=== PATIENT | male | born 1945 | race Asian ===

== ENCOUNTER 2020-04-28 02:53 | Inpatient (IN) | payer MEDICARE, OTHER ==
[2020-04-28] VITALS (8 sets, daily range): BP systolic 128–154; BP diastolic 45–86
[~2020-04-28] VITALS: Ht 170.2 cm; Wt 62.3 kg
[~2020-04-28 02:53] MED LIST: ASPI-1111 PO; CANA300T PO; LISI-892 PO; METF-960 PO; MULT-1259 PO; PIOG45TA4 PO
[2020-04-28] MEDS ORDERED: LevETIRAcetam 500 MG in DEXTROSE 5%-WATER 100 ML IV ONE (03:30)
[2020-04-28 03:40] LABS: BASOPHILS % (AUTO) 0.5 % (0.0-2.0); EOSINOPHILS % (AUTO) 3.4 % (1.0-6.0); HEMOGLOBIN 12.2 g/dL (13.5-17.5); LYMPHOCYTES # (AUTO) 1.7 K/uL (1.0-4.8); LYMPHOCYTES % (AUTO) 21.1 % (22.0-44.0); MEAN CORPUSCULAR HEMOGLOBIN 26.4 pg (26.0-34.0); MEAN CORPUSCULAR HGB CONC 32.1 G/dL (31.0-37.0); MEAN CORPUSCULAR VOLUME 83 fL (80-100); MONOCYTES # (AUTO) 0.5 K/uL (0.1-1.0); MONOCYTES % (AUTO) 6.4 % (2.0-9.0); NEUTROPHILS # (AUTO) 5.5 K/uL (1.8-7.7); NEUTROPHILS % (AUTO) 68.6 % (40.0-70.0); PLATELET COUNT (AUTO) 199 K/uL (150-450); RED BLOOD CELL COUNT(AUTO) 4.61 MIL/uL (4.50-5.90); RED CELL DISTRIBUTION WIDTH 13.7 % (11.5-14.5)
[2020-04-28 03:55] LABS: ANION GAP 9 mmol/L (8-16); CALCIUM, TOTAL 9.6 mg/dL (8.8-10.5); CARBON DIOXIDE 28 mmol/L (22-29); CHLORIDE 106 mmol/L (98-107); CREATININE 0.94 mg/dL (0.60-1.30); GLOMERULAR FILTR. RATE CALC > 60 mL/min (>60); GLUCOSE,RANDOM 123 mg/dL (70-110); POTASSIUM 3.6 mmol/L (3.5-5.1); SODIUM SERUM 143 mmol/L (136-145); UREA NITROGEN, BLOOD 19 mg/dL (7-18)
[2020-04-28 03:57] LABS: INR 0.9 (0.9-1.1); PROTHROMBIN TIME 9.9 SEC (9.4-11.6)
[2020-04-28] MEDS: NiCARDipine HCL 25 MG in DEXTROSE 5%-WATER 240 ML IV PRN (03:57)
[2020-04-28 04:02] LABS: ALANINE AMINOTRANSFERASE 33 U/L (12-78); ALBUMIN 3.8 g/dL (3.4-5.0); ALKALINE PHOSPHATASE 81 U/L (46-116); ASPARTATE AMINOTRANSFERASE 24 U/L (15-37); BILIRUBIN,TOTAL 0.5 mg/dL (0.1-1.0); TOTAL PROTEIN, SERUM 7.6 g/dL (6.4-8.2)
[2020-04-28 04:11] LABS: COVID AG,FIA SOURCE NASOPHARYNGEAL
[2020-04-28] MEDS ORDERED: DEXTROSE 50%-WATER 25 GM/50 ML SYRINGE IVP PRN (09:30)
[2020-04-28 13:05] LABS: APPEARANCE,URINE CLEAR (CLEAR); BILIRUBIN,URINE NEGATIVE (NEGATIVE); GLUCOSE, URINE (UA) NEGATIVE (NEGATIVE); KETONES,URINE NEGATIVE (NEGATIVE); LEUKOCYTE ESTERASE ,URINE NEGATIVE (NEGATIVE); NITRATE,URINE NEGATIVE (NEGATIVE); OCCULT BLOOD,URINE NEGATIVE (NEGATIVE); PH,URINE 7.5 (5.0-8.0); PROTEIN,URINE NEGATIVE (NEGATIVE); UROBILINOGEN,URINE 0.2 mg/dL (<=1.0)
[2020-04-28 13:11] LABS: AMPHET/METH SCREEN,URINE NEGATIVE (NEGATIVE); BARBITURATE SCREEN, URINE NEGATIVE (NEGATIVE); BENZODIAZEPINES SCREEN,URINE NEGATIVE (NEGATIVE); CANNABINOID SCREEN,URINE NEGATIVE (NEGATIVE); COCAINE SCREEN,URINE NEGATIVE (NEGATIVE); METHADONE SCREEN, URINE NEGATIVE (NEGATIVE); OPIATE SCREEN,URINE NEGATIVE (NEGATIVE); PHENCYCLIDINE SCREEN,URINE NEGATIVE (NEGATIVE)
[2020-04-28 13:14] LABS: BACTERIA,URINE None Seen /HPF (None Seen); RBC,URINE None Seen /HPF (0-2); WBC,URINE None Seen /HPF (0-5)
[2020-04-28] MEDS ORDERED: ACETAMINOPHEN 325 MG TABLET PO PRN (13:30)
[2020-04-28] MEDS ORDERED: BISACODYL 10 MG RECTAL RECTAL SUPPOSITORY PR PRN (13:30)
[2020-04-28] MEDS ORDERED: DEXTROSE 5%-0.45% SODIUM CHL 1,000 ML IV ONE (13:45)
[2020-04-28 15:33] LABS: GLUCOSE,POINT OF CARE 143 MG/DL (70-110)
[2020-04-28] MEDS: INSULIN LISPRO 100 UNITS/ML SQ PRN (15:33)
[2020-04-28] MEDS: LevETIRAcetam 500 MG in DEXTROSE 5%-WATER 100 ML IV SCH (16:14)
[2020-04-28 17:54] LABS: GLUCOSE,POINT OF CARE 114 MG/DL (70-110)
[2020-04-28 23:46] LABS: GLUCOSE,POINT OF CARE 134 MG/DL (70-110)
[2020-04-29] VITALS (13 sets, daily range): BP systolic 114–145; BP diastolic 70–88
[2020-04-29] MEDS: LevETIRAcetam 500 MG in DEXTROSE 5%-WATER 100 ML IV SCH ×2 (03:21→15:48)
[2020-04-29 05:05] LABS: GLUCOSE,POINT OF CARE 158 MG/DL (70-110)
[2020-04-29 05:08] LABS: BASOPHILS % (AUTO) 0.4 % (0.0-2.0); EOSINOPHILS % (AUTO) 3.1 % (1.0-6.0); HEMATOCRIT 41.8 % (41-53); HEMOGLOBIN 13.4 g/dL (13.5-17.5); LYMPHOCYTES # (AUTO) 1.5 K/uL (1.0-4.8); LYMPHOCYTES % (AUTO) 24.2 % (22.0-44.0); MEAN CORPUSCULAR HEMOGLOBIN 26.5 pg (26.0-34.0); MEAN CORPUSCULAR HGB CONC 32.1 G/dL (31.0-37.0); MEAN CORPUSCULAR VOLUME 83 fL (80-100); MONOCYTES # (AUTO) 0.6 K/uL (0.1-1.0); MONOCYTES % (AUTO) 8.8 % (2.0-9.0); NEUTROPHILS % (AUTO) 63.5 % (40.0-70.0); PLATELET COUNT (AUTO) 202 K/uL (150-450); RED BLOOD CELL COUNT(AUTO) 5.06 MIL/uL (4.50-5.90)
[2020-04-29 05:17] LABS: ANION GAP 8 mmol/L (8-16); CALCIUM, TOTAL 9.6 mg/dL (8.8-10.5); CARBON DIOXIDE 27 mmol/L (22-29); CHLORIDE 100 mmol/L (98-107); GLUCOSE,RANDOM 176 mg/dL (70-110); POTASSIUM 4.3 mmol/L (3.5-5.1); SODIUM SERUM 135 mmol/L (136-145); UREA NITROGEN, BLOOD 13 mg/dL (7-18)
[2020-04-29 05:22] LABS: GLOMERULAR FILTR. RATE CALC > 60 mL/min (>60)
[2020-04-29] MEDS: INSULIN LISPRO 100 UNITS/ML SQ PRN ×2 (05:57→18:50)
[2020-04-29] MEDS: PANTOPRAZOLE SODIUM 40 MG/VIAL IVP SCH (08:02)
[2020-04-29 13:03] LABS: GLUCOSE,POINT OF CARE 115 MG/DL (70-110)
[2020-04-29 18:34] LABS: GLUCOSE,POINT OF CARE 167 MG/DL (70-110)
[2020-04-29 21:50] LABS: GLUCOSE,POINT OF CARE 130 MG/DL (70-110)
[2020-04-30] VITALS: BP 135/81
[2020-04-30 01:21] LABS: GLUCOSE,POINT OF CARE 130 MG/DL (70-110)
[2020-04-30] MEDS: LevETIRAcetam 500 MG in DEXTROSE 5%-WATER 100 ML IV SCH ×2 (03:50→15:59)
[2020-04-30 04:00] VITALS: BP 138/84
[2020-04-30] MEDS ORDERED: SODIUM CHLORIDE 0.9% 250 ML IV ONE (04:02)
[2020-04-30] MEDS: INSULIN LISPRO 100 UNITS/ML SQ PRN (06:04)
[2020-04-30 07:08] LABS: GLUCOSE,POINT OF CARE 235 MG/DL (70-110)
[2020-04-30] MEDS: PANTOPRAZOLE SODIUM 40 MG/VIAL IVP SCH (07:57)
[2020-04-30 08:00] VITALS: BP 154/91
[2020-04-30] MEDS: NiCARDipine HCL 25 MG in DEXTROSE 5%-WATER 240 ML IV PRN ×2 (08:56→13:00)
[2020-04-30] MEDS ORDERED: ONDANSETRON HCL 4 MG/2 ML VIAL IVP PRN (10:00)
[2020-04-30] MEDS ORDERED: METOPROLOL SUCCINATE 25 MG ER TABLET PO SCH (10:00)
[2020-04-30 11:19] LABS: CHOL/HDL RATIO 1.9 (4.2-7.3)
[2020-04-30] MEDS ORDERED: LORazepam 2 MG/ML VIAL IVP ONE (11:45)
[2020-04-30 12:00] VITALS: BP 122/70
[2020-04-30 16:00] VITALS: BP 118/79
[2020-04-30 17:33] LABS: GLUCOSE,POINT OF CARE 220 MG/DL (70-110)
[2020-04-30] MEDS ORDERED: HydrALAZINE HCL 20 MG/ML VIAL IVP PRN (19:00)
[2020-04-30 20:00] VITALS: BP 121/71
[2020-04-30] MEDS ORDERED: METOPROLOL TARTRATE 25 MG TABLET PO SCH (21:00)
[2020-04-30 22:36] LABS: GLUCOSE,POINT OF CARE 127 MG/DL (70-110)
[2020-04-30 22:36] LABS: GLUCOSE,POINT OF CARE 138 MG/DL (70-110)
== END 2020-04-30 21:03 | disposition short-term general hospital (02) | DRG 64 ==
LOC: EMS 02:54 → AHU 07:29 → ICU 04-29 23:31
PROVIDERS: ADMIT Hospitalist; ATTEND Hospitalist
DX: I61.8 Other nontraumatic intracerebral hemorrhage (principal); G93.6 Cerebral edema; G81.94 Hemiplegia, unspecified affecting left nondominant side; I50.9 Heart failure, unspecified; E11.9 Type 2 diabetes mellitus without complications; I11.0 Hypertensive heart disease with heart failure; H26.9 Unspecified cataract; Z98.49 Cataract extraction status, unspecified eye; Z79.82 Long term (current) use of aspirin; Z20.822 Contact with and (suspected) exposure to COVID-19
CPT/HCPCS: 70450; 70496; 86850; 86900; 86901; 87426; 92521; 93005; 93306; 97112; 97162; 97167; 97530; 97535; 99291; C9113; G0378; J0712; J1815; J2060; J2405; J3490; J7050; J7060; 36415-L1; 36415-TC; 71045-TC; 80061-TC